=== PATIENT | female | born 1960 | race Caucasian/White ===

== ENCOUNTER 2018-11-12 13:30 | Outpatient (RCR) | payer OTHER ==
--- NOTE | 2018-10-22 16:34 | OT INITIAL EVALUATION ---
SUBJECTIVE: Patient is a 58 year old right hand dominate female referred to OP OT services for evaluation and treatment for the left index finger for ROM status post injury from a camper vent falling on the hand requiring several stitches. This injury occurred on 09/23/2018 while the patient was on vacation with her . Patient had 7 stitches removed 14 days post injury. Patient reports that she is having difficulty with range of motion of the finger. Functional use of the left hand has been difficult with the injury. Previous Medical History: please refer to chart Occupation: N/A OBJECTIVE: ROM: AROM Left PIP Flexion 68* PIP Extension 0* DIP Flexion 30* DIP Extension 0* Sensation: reports of numbness around the pad of the finger and along the area that the vent cut requiring stitches Pain: no reports of pain ASSESSMENT Patient presents with decreased flexion of the PIP and DIP joints of the left index finger. Decreased ROM is affected by the existing swelling and the area in which the vent cut the finger, which runs directly over the bend of the DIP joint of the finger. The decrease in ROM of these joints is limiting the patient's ability to use her left hand in functional activities. The wound is dry and intact, but there is still a ridge of skin that is still healing. Will plan to watch the area. Patient to benefit from OT services to increase AROM and functional use of the left hand in self cares and work activities. Short Term Goals 1.Patient will increase left index finger PIP flexion to approximately 100 degrees in order to hold objects. 2.Patient will increase left index finger DIP flexion to approximately 90 degrees in order to hold objects. 3.Patient will report of no numbness in the left index finger. 4.Patient will use the left index finger in self cares and work related activities. PLAN: Plan to see patient 2 times a week for 4-6 weeks improve independence with ADLs and IADLs using the left hand. Plan of care to include ther ex, ther act, modalities Thank you for this referral. If you have any questions, concerns, or comments about this report or plan, please contact me at [phone]. Zianab Ribeiro MS, OTR/L Occupational Therapist Provider Signature Date MTDD
[~2018-11-12 13:30] MED LIST: HYDR30CR10 TP; LEVO25TA61 PO; T COMPOUND PO
--- NOTE | 2018-11-12 15:55 | OT DISCHARGE SUMMARY ---
SUBJECTIVE: Patient is a 58 year old right hand dominate female referred to OP OT services for evaluation and treatment for the left index finger for ROM status post injury from a camper vent falling on the hand requiring several stitches. This injury occurred on 09/23/2018 while the patient was on vacation with her . Patient had 7 stitches removed 14 days post injury. Patient has been seen in the clinic for four visits. Previous Medical History: please refer to chart Occupation: N/A OBJECTIVE: ROM: AROM Left PIP Flexion 68*, now 98* PIP Extension 0* WNL DIP Flexion 30*, now 65* DIP Extension 0* WNL Sensation: reports of numbness and sensitivity around the pad of the finger but that this is improving Pain: no reports of pain ASSESSMENT Patient over the course of the last 4 visits has made great gains in AROM and functional use of her left index finger. Incision is completely healed. AROM is nearing WNL. Patient has been educated on a home exercise program including scar remodeling. At this time, patient does not need to continue with OP OT services. Short Term Goals 1.Patient will increase left index finger PIP flexion to approximately 100 degrees in order to hold objects. met 2.Patient will increase left index finger DIP flexion to approximately 90 degrees in order to hold objects. partially met 3.Patient will report of no numbness in the left index finger. partially met 4.Patient will use the left index finger in self cares and work related activities. met PLAN: Plan to discharge patient from OT services. Patient can continue to work on increasing ROM of the PIP joint and scar remodeling at home. There is no need to have patient continue with therapy sessions at this time. If patient has concerns moving forward, OT encouraged her to contact the clinic. Thank you for this referral. If you have any questions, concerns, or comments about this report or plan, please contact me at [phone]. Zainab Ribeiro MS, OTR/L Occupational Therapist Provider Signature Date MTDD
== END 2018-11-12 18:00 | disposition home or self-care (01) ==
LOC: PT 13:30
PROVIDERS: ATTEND Nurse Practitioner Family
DX: S67.191S Crushing injury of left index finger, sequela (principal)
CPT/HCPCS: 97165